=== PATIENT | male | born 1985 | race Caucasian/White ===

== ENCOUNTER 2023-12-20 06:13 | Emergency (ER) | payer OTHER, SELFPAY ==
[2023-12-20 06:17] VITALS: BP 134/85
--- NOTE | 2023-12-20 06:32 | ED.GENMED ---
History of Present Illness
General
Chief Complaint: Flank Pain
Source: patient
Exam Limitations: none
Time Seen by Provider: 12/20/23 06:30
Travel History
Have you had any contact with someone who has COVID-19?: No
Do you have any symptoms of coronavirus? Fever > 100 degrees, chills, cough, shortness of breath, sore throat, loss of taste or smell, muscle aches, or headache?: No
History of Present Illness
History of Present Illness:
See MDM
Past History
Past History
ED Past Medical History: Other (Kidney stone)
ED Past Surgical History: None
Social History
Tobacco: Non-smoker
Alcohol: None
Phy Exam
Physical Exam
Physical Exam:
See MDM
Course
Orders/Labs/Results
Orders:
Orders
12/20/23 06:41
Ketorolac [Toradol] 30 mg IM NOW STA
Ondansetron Orally Disint [Zofran Odt (Orally Disintegrating)] 4 mg PO NOW STA
Oxycodone/Acetaminophen [Percocet 5/325] 1 tablet PO NOW STA
12/20/23 06:42
CT Abd/pel Without Iv Or Oral Urgent
Comment:
Reason For Exam: R flank and RLQ pain
12/20/23 06:46
Urinalysis Reflex To Culture Urgent
Date Specimen was Collected: 12/20/23
Time Specimen was Collected: 06:45
Urine Microscopic Reflex Cult Urgent
Abnormal Lab Results
12/20/23
06:46
Urine Ketones Trace A
(Negative)
Ur Occult Blood Reflex 4+ A
(Negative)
Urine Bilirubin 1+ A
(Negative)
Urine RBC 21-25 A /HPF
(0-2)
Urine Bacteria (Reflex) Few A
(Negative)
Vital Signs
Initial and Last Documented VS:
Initial Vital Signs
Temp Pulse Resp BP Pulse Ox
98.1 F 53 20 134/85 98
12/20/23 06:17 12/20/23 06:17 12/20/23 06:17 12/20/23 06:17 12/20/23 06:17
Last Documented Vital Signs
Temp Pulse Resp BP Pulse Ox
98.1 F 53 20 134/85 98
12/20/23 06:17 12/20/23 06:17 12/20/23 06:17 12/20/23 06:17 12/20/23 06:17
MDM/Problems Addressed
Differential Diagnosis Includes:
HPI and MDM Narrative:
38-year-old male presenting with right flank pain. Pain is radiating to right groin. Patient has a history of kidney stones. He had similar pain on the left side a few months ago and passed a kidney stone. Patient states the pain comes and goes.
This is associated with nausea.
Given his history of kidney stones with the colicky pain, will obtain CT to rule out recurrent kidney stone
Physical exam
General: Mild discomfort
HEENT: protecting airway
Neck: appears supple
CV: No evidence of cyanosis
Resp: No accessory muscle use
Abd: Non-distended. Mild right flank tenderness. No rebound. Negative McBurney sign
Extremities: No deformities
Neuro: alert
Psych: Normal affect
Skin: Intact
Problems Addressed including Acute and Chronic Conditions affecting care:
1. Flank pain
Acuity: acute
Prognosis: stable
Details: Given his history, will obtain CT to rule out recurrent kidney stones. Patient given IM Toradol, Percocet and Zofran ODT
Updates
CT consistent with kidney stone at right UVJ. On reexamination, patient feeling much better. Discussed follow-up with urology
Differential Diagnosis (but not limited to): Kidney stone, appendicitis, cholecystitis
Testing considered: Blood work
Drug therapy (if applicable): OTC meds, please see d/c instruction regarding Rx drugs
Amount and/or Complexity of Data Reviewed
Clinical info obtained from: Patient
External data reviewed: provided recent blood work from his ER visit a few months ago. No significant abnormality noted
Labs I independently reviewed (but not limited to): Urinalysis negative for infection
Radiology: The CT scan was personally and independently reviewed. In addition, official CT report reviewed.
Pulse Ox: not hypoxic
EKG independently reviewed: N/A
Web Pressman: N/A
Critical Care: N/A
Risk of Complication:
Social Determinants of health: Good social support
Discussed with other providers: N/A
Escalation of Care includes Admit/Obs: After being observed in the Emergency Department, pt stable for discharge.
Occasional wrong word or 'sound a like' substitutions may have occurred due to the inherent limitations of voice recognition software. Read the chart carefully and recognize, using context, where substitutions have occurred.
*Critical Care Note
Total Time (30-74mins, 75-104mins- exclusive of procedures): Not Applicable
ED Attending Note
-
Portions of this chart may have been created with voice recognition software.� Occasional wrong word or��sound alike� substitutions may have occurred due to the inherent limitations of voice recognition software.
Discharge Plan
Departure
Patient Disposition: Home (Routine Discharge)
Date of Disposition: 12/20/23
Time of Disposition: 08:05
Patient with high blood pressure during this ER visit?: No
Discharge Problem:
Kidney stone on right side
Instructions: Kidney Stones (DC), How to Strain Your Urine
Prescriptions:
New
tamsulosin [Flomax] 0.4 mg Capsule
0.4 mg PO DAILY Qty: 14 0RF
diclofenac potassium 50 mg tablet
50 mg PO BID Qty: 20 0RF
ondansetron 4 mg Tablet,Disintegrating
4 mg PO BIDPRN PRN (Reason: nausea/vomiting) Qty: 10 0RF
oxycodone 5 mg tablet
5 mg PO Q8H PRN (Reason: Pain) Qty: 14 0RF
Referrals:
Mau Giraldo MD [Active] -
Justin Alicia MD [Family Provider] -
Activity Restrictions/Additional Instructions:
Please return for any worsening symptoms.
You may return at any time if you have further concerns.
Please follow up with your doctor at the first available appointment, preferably this week.
Please make an appointment to see the urologist.
Thank you for choosing [facility].
Interventions
Interventions:
*Risk Screen - Suicide Last Done: 12/20/23 06:17
*General Assessment Last Done: 12/20/23 06:17
*Neglect/Abuse Screening Last Done: 12/20/23 06:17
ED- Fall Risk Assessment Last Done: 12/20/23 06:17
*ED COVID-19 Vaccine History Last Done: 12/20/23 06:17
NV-Nwedwy-Mthfsoclgu Assessment Last Done: 12/20/23 06:42
ED-Male Genitourinary Assessment Last Done: 12/20/23 06:42
Discharge Date and Time
Print Language: SLOVENIAN
[2023-12-20 06:41] VITALS: BMI 30.2
[2023-12-20] MEDS: ZOFRAN ODT (ORALLY DISINTEGRATING) 4 MG PO (06:49)
[2023-12-20] MEDS: TORADOL 30 MG IM (06:50)
[2023-12-20] MEDS: PERCOCET 5/325 1 TABLET PO (06:52)
[2023-12-20 07:10] LABS: Urine Albumin Trace (Neg - Trace); Urine Bilirubin 1+ (Negative); Urine Character Clear (Clear); Urine Color Yellow; Urine Glucose Negative (Negative); Urine Ketone Trace (Negative); Urine Leukocyte Negative (Negative); Urine Nitrite Negative (Negative); Urine Occult Blood 4+ (Negative); Urine Urobilinogen Negative (Neg - 1+)
[2023-12-20 07:50] LABS: Urine Amorphous Seen; Urine Mucus Few
[2023-12-20 07:51] LABS: Urine Bacteria Few (Negative); Urine Red Blood Cell 21-25 /HPF (0-2); Urine White Cell 0-2 /HPF (0-5)
[2023-12-20 08:11] VITALS: BP 112/74
== END 2023-12-20 08:30 | disposition home or self-care (01) ==
LOC: EMR 06:13
PROVIDERS: EMERGENCY PHYSICIAN Student in an Organized Health Care Education/Training Program; FAMILY PHYSICIAN Internal Medicine
DX: N20.0 Calculus of kidney (principal); Z87.442 Personal history of urinary calculi
CPT/HCPCS: 99284; 96372; 74176; 81003; 81015

== ENCOUNTER 2024-02-24 15:25 | Emergency (ER) | payer OTHER, SELFPAY ==
[2024-02-24 15:28] VITALS: BP 128/87
[2024-02-24 15:46] LABS: % Basophils 0.6 % (0-2); % Eosinophils 1.2 % (0-6); % Immature Granulocytes 0.4 % (0-0.5); % Lymphocytes 16.7 % (20.5-51.1); % Monocytes 8.9 % (1.7-9.3); % Neutrophils 72.2 % (42.2-75.2); Absolute Basophils 0.1 10^3/uL (0-0.2); Absolute Eosinophils 0.1 10^3/uL (0-0.7); Absolute Lymphocytes 1.8 10^3/uL (1.2-3.4); Absolute Neutrophils 7.8 10^3/uL (1.4-6.5); Hematocrit 42.3 % (39.0-52.0); Hemoglobin 14.6 g/dL (13.0-18.0); Mean Corp Hgb Conc. 34.5 g/dL (33.0-37.0); Mean Corpuscular Hgb 28.3 pg (27.0-31.0); Mean Corpuscular Volume 82.1 fL (80.0-94.0); Mean Platelet Volume 9.7 fL (7.4-10.4); Nucleated Red Blood Cells % 0 % (-); Platelet Count 239 10^3/uL (130-400); Red Blood Cell Count 5.15 10^6/uL (4.70-6.10); Red Cell Dist. Width 12.7 % (11.5-14.5); White Blood Cell Count 10.8 10^3/uL (4.8-10.8)
[2024-02-24 15:55] LABS: Urine Albumin Trace (Neg - Trace); Urine Bilirubin Negative (Negative); Urine Character Clear (Clear); Urine Color Yellow; Urine Glucose 1+ (Negative); Urine Ketone Negative (Negative); Urine Leukocyte Trace (Negative); Urine Nitrite Negative (Negative); Urine Occult Blood 2+ (Negative); Urine Urobilinogen Negative (Neg - 1+)
[2024-02-24 16:07] LABS: ALT (SGPT) 34 U/L (0-50); AST (SGOT) 33 U/L (17-59); Albumin 4.6 g/dl (3.5-5.0); Alkaline Phosphatase 98 U/L (38-126); Blood Urea Nitrogen 12 mg/dl (9-20); Calcium 9.2 mg/dl (8.4-10.2); Carbon Dioxide 27 mmol/L (22-30); Chloride 101 mmol/L (98-107); Glucose 106 mg/dl (70-99); Potassium 3.8 mmol/L (3.5-5.1); Sodium 136 mmol/L (135-145); Total Bilirubin 1.2 mg/dl (0.2-1.3); Total Protein 7.3 g/dl (6.3-8.2); eGFR > 60.00
[2024-02-24 16:11] LABS: Urine White Cell 0-2 /HPF (0-5)
--- NOTE | 2024-02-24 17:28 | ED.GENMED ---
History of Present Illness
General
Chief Complaint: Abdominal Pain
Source: patient
Exam Limitations: none
Time Seen by Provider: 02/24/24 17:17
Nursing documentation reviewed up to this point in time: agreed with
History of Present Illness
History of Present Illness:
39-year-old male with history of kidney stones, presents with his third day of left lower quadrant pain that feels similar to his other kidney stones. He had some leftover Flomax oxycodone and ibuprofen at home. The ibuprofen has helped and now
his pain is 0 out of 10.
Patient denies fever or chills, denies nausea or vomiting.
Past History
Past History
ED Past Medical History: Other (Kidney stone)
ED Past Surgical History: None
Social History
Tobacco: Non-smoker
Alcohol: None
Personal:
Living: with family
Employment: Employed
Review of Systems
Review of Systems
Allergies reviewed?: Yes
All Other Systems: ROS reviewed and negative except as documented in HPI and ROS
Constitutional: Denies fever or chills
ABD/GI: Reports abdominal pain; Denies nausea or vomiting
: Denies dysuria, frequency, flank pain, difficulty voiding or bleeding
Skin: Reports no symptoms
Phy Exam
Physical Exam
Physical Exam:
GENERAL: No acute distress. A&Ox3.
CONSTITUTIONAL: Afebrile.
RESPIRATORY: Regular respirations, nonlabored, lungs clear.
CARDIOVASCULAR: Regular rate and rhythm, no murmurs, no rubs.
GI: Soft, nontender, normal BS
MUSCULOSKELETAL: Moves with ease. Well perfused.
SKIN: Warm, dry, pink
PSYCH: Normal mood and affect. Well kept, interactive and appropriate
NEUROLOGIC: Awake, alert and oriented. No focal neurological deficits
Course
Orders/Labs/Results
Orders:
Orders
02/24/24 15:39
CMP [Comprehensive Metabolic Panel] Urgent
Complete Blood Count/With Diff Urgent
02/24/24 15:47
Urine Culture Reflexed from UA [Urinalysis Reflex To Culture] Urgent
Date Specimen was Collected: 02/24/24
Time Specimen was Collected: 15:45
Urine Microscopic Reflex Cult Urgent
02/24/24 17:27
US Renal With Bladder Urgent
Comment: bladder not full ok, looking at ureteral jets
Reason For Exam: LLQ pain, history of stones, feels similar
02/24/24 19:39
Abdomen Xray - 1 View [CR Abdomen - 1 View] Urgent
Comment:
Reason For Exam: ck for Left ureteral stone
02/24/24 21:09
Ibuprofen [Motrin] 600 mg .ROUTE .STK-MED ONE
Ibuprofen [Motrin] 600 mg PO NOW STA
Abnormal Lab Results
02/24/24 02/24/24
15:39 15:47
Absolute Neuts (auto) 7.8 H 10^3/uL
(1.4-6.5)
Absolute Monos (auto) 1.0 H 10^3/uL
(0.1-0.6)
Lymphocytes % 16.7 L %
(20.5-51.1)
Glucose 106 H mg/dl
(70-99)
Ur Occult Blood Reflex 2+ A
(Negative)
Leukocyte Esterase Rfl Trace A
(Negative)
Urine RBC 7-10 A /HPF
(0-2)
Urine Glucose 1+ A
(Negative)
02/24/24 15:39
02/24/24 15:39
Vital Signs
Initial and Last Documented VS:
Initial Vital Signs
Temp Pulse Resp BP Pulse Ox
98.1 F 82 18 128/87 96
02/24/24 15:28 02/24/24 15:28 02/24/24 15:28 02/24/24 15:28 02/24/24 15:28
Last Documented Vital Signs
Temp Pulse Resp BP Pulse Ox
98.1 F 80 20 121/78 97
02/24/24 15:28 02/24/24 21:28 02/24/24 21:28 02/24/24 21:28 02/24/24 21:28
Sap Mobility Architect consulted with Physician
Sap Mobility Architect consulted with physician?: Yes
Name of Physician Consulted: Kerry
MDM/Problems Addressed
Differential Diagnosis Includes:
Kidney stone
MDM/Problems Addressed:
39-year-old male with history of kidney stones, presents with his third day of left lower quadrant pain that feels similar to his other kidney stones. He had some leftover Flomax oxycodone and Dicolfenac at home. The ibuprofen has helped and now
his pain is 0 out of 10.
Patient denies fever or chills, denies nausea or vomiting.
Afebrile, NAD
CBC normal
CMP normal
UA with red blood cells, no sign of infection
Patient is requesting ultrasound rather than CAT scan as he had 2 CTs in the past.
8:15 PM
Renal ultrasound radiology report reviewed: Mild left hydronephrosis without an obstructing cause identified sonographic
Flatplate abdomen is showing a 5 mm stone in the mid left ureter
Pt is comfortable going home. Rx for Diclofenac sent to his pharmacy
He has Urologist at [facility] he will f/u with. Return instructions discussed.
Case discussed with Dr. Payne who reviewed results and agrees with assessment and plan.
*Critical Care Note
Total Time (30-74mins, 75-104mins- exclusive of procedures): Not Applicable
ED Attending Note
-
Portions of this chart may have been created with voice recognition software.� Occasional wrong word or��sound alike� substitutions may have occurred due to the inherent limitations of voice recognition software.
Discharge Plan
Departure
Patient Disposition: Home (Routine Discharge)
Date of Disposition: 02/24/24
Time of Disposition: 20:53
Patient with high blood pressure during this ER visit?: No
Condition: Good
Discharge Problem:
Left ureteral calculus
Instructions: Kidney Stones (DC)
Prescriptions:
New
diclofenac sodium 50 mg tablet,delayed release (DR/EC)
50 mg PO TID PRN (Reason: Pain) Qty: 20 0RF
No Action
tamsulosin [Flomax] 0.4 mg Capsule
0.4 mg PO DAILY Qty: 14 0RF
diclofenac potassium 50 mg tablet
50 mg PO BID Qty: 20 0RF
ondansetron 4 mg Tablet,Disintegrating
4 mg PO BIDPRN PRN (Reason: nausea/vomiting) Qty: 10 0RF
oxycodone 5 mg tablet
5 mg PO Q8H PRN (Reason: Pain) Qty: 14 0RF
Referrals:
UNKNOWN - PT DOES,NOT KNOW [Family Provider] -
Activity Restrictions/Additional Instructions:
As we discussed, you may take diclofenac 50 mg up to 3 times a day as needed for pain.
I sent a prescription to your pharmacy.
Call tomorrow morning and make an appointment to see your urologist.
Return here immediately for fever/chills, vomiting, pain not relieved with medication or feeling sicker in any way.
Interventions
Interventions:
*Risk Screen - Suicide Last Done: 02/24/24 15:28
*General Assessment Last Done: 02/24/24 15:28
*Neglect/Abuse Screening Last Done: 02/24/24 15:28
ED- Fall Risk Assessment Last Done: 02/24/24 20:41
*ED COVID-19 Vaccine History Last Done: 02/24/24 21:28
*Nursing Disposition Last Done: 02/24/24 21:28
OK-Yzdcxc-Fjozwgfwfp Assessment Last Done: 02/24/24 20:41
Discharge Date and Time
Discharge Date/Time: 02/24/24 21:31
Print Language: [place]
[2024-02-24] MEDS: MOTRIN 600 MG PO (21:09)
[2024-02-24 21:28] VITALS: BP 121/78
== END 2024-02-24 21:31 | disposition home or self-care (01) ==
LOC: EMR 15:25
PROVIDERS: EMERGENCY PHYSICIAN Emergency Medicine
DX: N13.2 Hydronephrosis with renal and ureteral calculous obstruction (principal)
CPT/HCPCS: 99285; 74018; 76770; 80053; 81003; 81015; 85025